=== PATIENT | female | born 1995 | race Caucasian/White ===

== ENCOUNTER 2019-10-01 09:20 | Emergency (ER) | payer OTHER ==
[2019-10-01 09:23] VITALS: BP 110/68; PULSE 128; TEMP 100.4
[2019-10-01] MEDS ORDERED: DEXAMETHASONE SOD PHOSPHATE 4 MG/ML 1 ML VIAL PO ONE (09:32)
--- NOTE | 2019-10-01 09:40 | ED ---
ENT HPI - General Chief complaint: ENT Stated complaint: sore throat Time Seen by Provider: 10/01/19 09:24 Source: patient, RN notes reviewed Mode of arrival: ambulatory Limitations: no limitations - History of Present Illness Initial comments: 24-year-old female presents emergency from chief complaints sore throat 3 days. Patient states her tonsils are swollen, exudates on them. Patient states that she's had a fever at home no abdominal pain no fatigue. Patient had no sick contacts. Patient states she has no difficulty swelling states it's is painful. Patient states that she has no cough congestion or ear pain. - Related Data Previous Rx's Medication Instructions Recorded Azithromycin [Zithromax Z-pack] 0 mg PO DIRECTED #1 pack 10/01/19 Allergies Allergy/AdvReac Type Severity Reaction Status Date / Time codeine Allergy Unknown Verified 10/01/19 09:23 Penicillins Allergy Unknown Verified 10/01/19 09:23 Review of Systems ROS Statement: Those systems with pertinent positive or pertinent negative responses have been documented in the HPI. ROS Other: All systems not noted in ROS Statement are negative. Past Medical History Past Medical History: No Reported History History of Any Multi-Drug Resistant Organisms: None Reported Past Surgical History: Breast Surgery Past Psychological History: No Psychological Hx Reported Smoking Status: Never smoker Past Alcohol Use History: None Reported Past Drug Use History: None Reported General Exam Limitations: no limitations General appearance: alert, in no apparent distress Head exam: Present: atraumatic, normocephalic, normal inspection Eye exam: Present: normal appearance, PERRL, EOMI. Absent: scleral icterus, conjunctival injection, periorbital swelling ENT exam: Present: mucous membranes moist, TM's normal bilaterally. Absent: normal exam, normal oropharynx (Erythema, exudates and edema, swallowing secretions well) Neck exam: Present: normal inspection, full ROM, lymphadenopathy. Absent: tenderness, meningismus Respiratory exam: Present: normal lung sounds bilaterally. Absent: respiratory distress, wheezes, rales, rhonchi, stridor Cardiovascular Exam: Present: normal rhythm, tachycardia, normal heart sounds. Absent: systolic murmur, diastolic murmur, rubs, gallop, clicks GI/Abdominal exam: Present: soft, normal bowel sounds. Absent: distended, tenderness, guarding, rebound, rigid Course Vital Signs 11/27/19 09:21 Temperature 100.4 F H Pulse Rate 128 H Respiratory 18 Rate Blood Pressure 110/68 O2 Sat by Pulse 96 Oximetry Medical Decision Making - Medical Decision Making Patient will be treated for clinical strep pharyngitis. Patient was given a dose of eczema some emergency from for her swelling. Patient was started on azithromycin secondary to penicillin ALLERGY. Disposition Clinical Impression: Acute tonsillitis, Acute pharyngitis Disposition: HOME SELF-CARE Condition: Stable Instructions (If sedation given, give patient instructions): Strep Throat (ED) Additional Instructions: Please return to the Emergency Department if symptoms worsen or any other concerns. Prescriptions: Azithromycin [Zithromax Z-pack] 0 mg PO DIRECTED #1 pack Is patient prescribed a controlled substance at d/c from ED?: No Referrals: None,Stated [Primary Care Provider] - 1-2 days Time of Disposition: 09:39
[2019-10-01 10:05] VITALS: RESP 20
== END 2019-10-01 10:05 | disposition home or self-care (01) ==
LOC: EC 09:20
DX: J03.90 Acute tonsillitis, unspecified (principal); Z88.0 Allergy status to penicillin; Z88.5 Allergy status to narcotic agent
CPT/HCPCS: 99283; J1100

== ENCOUNTER 2021-02-14 06:47 | Day surgery (SDC) | payer BC ==
[2021-02-10 15:05] VITALS: BMI 20.5
[~2021-02-14 06:47] MED LIST: ACETAMINOPHEN TAB 500 MG TAB PO PRN; DEXAMETHASONE SOD PHOSPHATE 4 MG/ML 1 ML VIAL IV ONE; HEPARIN SODIUM,PORCINE/PF 5,000 UNIT/0.5 ML SYRINGE SQ PRN; HYDROmorphone 0.5 MG/0.5 ML SYRINGE IVP PRN; LIDOCAINE 1% (10MG/ML) FOR IV START INTRADERMA PRN; ONDANSETRON 4 MG/2 ML VIAL IVP ONE
[2021-02-14 07:14] VITALS: TEMP 98.4
[2021-02-14] MEDS: LACTATED RINGERS 1,000 ML IV SCH ×2 (07:22→07:55)
[2021-02-14] MEDS ORDERED: SCOPOLAMINE 1.5MG/72HR PATCH TRANSDERM ONE (07:30)
[2021-02-14] MEDS: MIDAZOLAM 2 MG/2 ML VIAL IV PRN ×2 (07:35→07:40)
[2021-02-14] MEDS ORDERED: LIDOCAINE 1% INJ 10MG/ML (20 ML MDV) ONE (07:50)
[2021-02-14] MEDS ORDERED: fentaNYL (PF) 50 MCG/ML 2 ML AMP ONE (07:50)
[2021-02-14] MEDS ORDERED: PROPOFOL 10 MG/ML 20 ML VIAL IV ONE (07:50)
--- NOTE | 2021-02-14 07:54 | P.GSHP ---
History of Present Illness H&P Date: 02/14/21 Chief Complaint: Right breast mass 2 25-year-old female with history of fibroadenoma right breast. She had a 4 cm lesion excised in 2016. Recently has noticed increasing mass at 4:00 and 6:00. Mild discomfort. Past Medical History Past Medical History: No Reported History History of Any Multi-Drug Resistant Organisms: None Reported Past Surgical History: Breast Surgery Additional Past Surgical History / Comment(s): RIGHT BREAST -BENIGN LUMP REMOVED Past Anesthesia/Blood Transfusion Reactions: No Reported Reaction, Motion Sick ness Smoking Status: Never smoker - Past Family History Mother Family Medical History: Cancer Additional Family Medical History / Comment(s): BREAST CANCER Medications and Allergies Home Medications Medication Instructions Recorded Confirmed Type No Known Home Medications 02/10/21 02/14/21 History Allergies Allergy/AdvReac Type Severity Reaction Status Date / Time codeine Allergy HIVES Verified 02/14/21 07:14 Penicillins Allergy HIVES Verified 02/14/21 07:14 Surgical - Exam Vital Signs Temp Pulse Resp BP 98.4 F 53 L 18 112/61 02/14/21 07:11 02/14/21 07:11 02/14/21 07:11 02/14/21 07:11 Physical exam: General: Well-developed, well-nourished HEENT: Normocephalic, sclerae nonicteric Right breast: 2 similar mass 4:00, 1 cm mass 6:00, no adenopathy Left breast: No masses, no adenopathy Abdomen: Nontender, nondistended Extremities: No edema Neuro: Alert and oriented Assessment and Plan (1) Breast mass, right Narrative/Plan: We'll proceed with surgical excision of both lesions. Current Visit: Yes Status: Acute Code(s): N63.10 - UNSPECIFIED LUMP IN THE RIGHT BREAST, UNSPECIFIED QUADRANT SNOMED Code(s): 83418810
[2021-02-14] MEDS ORDERED: BUPIVACAINE (PF) 0.25% 30 ML VIAL SQ ONE ×2 (08:18)
[2021-02-14] MEDS ORDERED: HYDROcodone/APAP 5-325MG 1 EACH TAB PO PRN (08:44)
[2021-02-14] MEDS ORDERED: NALOXONE 0.4 MG/ML 1 ML VIAL IV PRN (08:44)
--- NOTE | 2021-02-14 08:51 | P.OP ---
Date of Procedure: 02/14/21 Procedure(s) Performed: PREOPERATIVE DIAGNOSIS: Right breast mass 2 POSTOPERATIVE DIAGNOSIS: Same PROCEDURE: Excision right breast mass 2 SURGEON: Breana EBL: 5 mL ANESTHESIA: Gen. COMPLICATIONS: None OPERATIVE PROCEDURE: A eric placed in the operating table in the supine position. The right breast was prepped and draped sterilely. A skin marker was used to delineate the edge of the areola. The areola was incised between 2:00 and 6:00. This went through a portion of her previous scar site. The sub cutaneous tissues were dissected using electrocautery. The patient's palpable mass at 4:00 was first addressed. This was able to be excised without difficulty. This measured approximately 2 cm in size. The second lesion present at 6:00 was then addressed in a similar fashion. This measured about 1.5 cm. Both were sent to pathology for close examination labeled separately. Subcutaneous tissues were closed using 3-0 Vicryl sutures. The skin was closed using a 4-0 Monocryl sutures. Skin glue and sterile dressings applied. DISPOSITION: Stable to recovery room
[2021-02-14 09:55] VITALS: BP 110/78; PULSE 53; RESP 17
== END 2021-02-14 10:01 | disposition home or self-care (01) ==
LOC: OR 06:47
PROVIDERS: ATTEND Surgery
DX: D24.1 Benign neoplasm of right breast (principal); N60.21 Fibroadenosis of right breast; R92.0 Mammographic microcalcification found on diagnostic imaging of breast; Z80.3 Family history of malignant neoplasm of breast; Z88.5 Allergy status to narcotic agent; Z88.0 Allergy status to penicillin
CPT/HCPCS: 81025; 88305; 19120; J2250; J1100; J0690; J2405; J2001; J3010; J2704; J1644

== ENCOUNTER 2021-06-21 07:22 | Emergency (ER) | payer BC ==
[2021-06-21 07:28] VITALS: BP 122/72; PULSE 61; RESP 18; TEMP 97.9
[2021-06-21] MEDS ORDERED: SODIUM CHLORIDE 0.9% 500 ML 500 ML IV STA (07:31)
--- NOTE | 2021-06-21 07:44 | ED ---
General Adult HPI - General Chief complaint: Abdominal Pain Stated complaint: Abdominal Pain/Vaginal Bleeding Time Seen by Provider: 06/21/21 07:30 Source: patient Mode of arrival: ambulatory Limitations: no limitations - History of Present Illness Initial comments: Dictation was produced using [employer] dictation software. please excuse any grammatical, word or spelling errors. Chief Complaint: 25-year-old male presents emergency Department with pelvic pain and passage of blood clots through her vagina History of Present Illness: Is a 25-year-old female she states for the last couple days she's been having some pelvic pain. Patient states that she's been having irregular bleeding for the last month. She is had 4 menstrual cycles in the last 4 weeks. This morning she was taking a shower. She pressed on her pelvic area and it was a passage of a large what she describes a baseball sized clot. Patient complains of some mild pelvic pain. Denies any fever. No nausea or vomiting. No diarrhea. No dysuria. Patient did a urine test yesterday she states was negative. She is sexually active. She is often that she does not have an STD but would like to be tested. Denies any vaginal discharge. The ROS documented in this emergency department record has been reviewed and confirmed by me. Those systems with pertinent positive or negative responses have been documented in the HPI. All other systems are other negative and/or noncontributory. PHYSICAL EXAM: General Impression: Alert and oriented x3, not in acute distress HEENT: Normocephalic atraumatic, extra-ocular movements intact, pupils equal and reactive to light bilaterally, mucous membranes moist. Cardiovascular: Heart regular rate and rhythm Chest: Able to complete full sentences, no retractions, no tachypnea Abdomen: abdomen soft, bilateral lower abdominal palpatory tenderness, no rebound tenderness, non-distended, no organomegaly Musculoskeletal: Pulses present and equal in all extremities, no peripheral edema Motor: no focal deficits noted Neurological: CN II-XII grossly intact, no focal motor or sensory deficits noted Skin: Intact with no visualized rashes Psych: Normal affect and mood Pelvic exam was performed. There was some mild right adnexal tenderness. No cervical motion tenderness. No discharge. Cervix is benign. Without any lesions. ED course: 25-year-old female presents to the emergency department for pelvic pain and dysfunctional uterine bleeding. Vital signs upon arrival are within acceptable limits. Laboratory evaluation obtained. CBC, coag panel, metabolic panel is unremarkable. Urinalysis is negative. Patient is not . Trichomoniasis is negative. Pending Chlamydia and gonorrhea PCR. Transvaginal ultrasound shows small cervical nabothian cyst. No other abnormalities. Patient reeval uated bedside at 9:15 AM found to be in stable medical condition. Patient denies any high risk sexual activity. She is agreeable to waiting on her Chlamydia and gonorrhea PCR is before being treated. Clinical presentation consistent with dysfunctional uterine bleeding. Patient will be discharged advised follow-up with primary care doctor. - Related Data Home Medications Medication Instructions Recorded Confirmed No Known Home Medications 06/21/21 06/21/21 Allergies Allergy/AdvReac Type Severity Reaction Status Date / Time codeine Allergy HIVES Verified 06/21/21 08:25 Penicillins Allergy HIVES Verified 06/21/21 08:25 Review of Systems ROS Statement: Those systems with pertinent positive or pertinent negative responses have been documented in the HPI. ROS Other: All systems not noted in ROS Statement are negative. Past Medical History Past Medical History: No Reported History History of Any Multi-Drug Resistant Organisms: None Reported Past Surgical History: Breast Surgery Additional Past Surgical History / Comment(s): RIGHT BREAST -BENIGN LUMP REMOVED Past Anesthesia/Blood Transfusion Reactions: No Reported Reaction, Motion Sickness Past Psychological History: No Psychological Hx Reported Smoking Status: Never smoker Past Alcohol Use History: None Reported Past Drug Use History: Marijuana - Past Family History Mother Family Medical History: Cancer Additional Family Medical History / Comment(s): BREAST CANCER General Exam Limitations: no limitations Course Vital Signs 06/21/21 07:26 Temperature 97.9 F Pulse Rate 61 Respiratory 18 Rate Blood Pressure 122/72 O2 Sat by Pulse 99 Oximetry Medical Decision Making - Lab Data Result diagrams: 06/21/21 07:45 06/21/21 07:45 Lab Results 06/21/21 06/21/21 06/21/21 Range/Units 07:40 07:43 07:45 WBC 7.6 (3.8-10.6) k/uL RBC 4.65 (3.80-5.40) m/uL Hgb 13.6 (11.4-16.0) gm/dL Hct 40.3 (34.0-46.0) % MCV 86.8 (80.0-100.0) fL MCH 29.2 (25.0-35.0) pg MCHC 33.6 (31.0-37.0) g/dL RDW 12.6 (11.5-15.5) % Plt Count 253 (150-450) k/uL MPV 8.0 Neutrophils % 61 % Lymphocytes % 30 % Monocytes % 5 % Eosinophils % 1 % Basophils % 1 % Neutrophils # 4.7 (1.3-7.7) k/uL Lymphocytes # 2.3 (1.0-4.8) k/uL Monocytes # 0.4 (0-1.0) k/uL Eosinophils # 0.1 (0-0.7) k/uL Basophils # 0.0 (0-0.2) k/uL PT (9.0-12.0) sec INR (<1.2) APTT (22.0-30.0) sec Sodium (137-145) mmol/L Potassium (3.5-5.1) mmol/L Chloride (98-107) mmol/L Carbon Dioxide (22-30) mmol/L Anion Gap mmol/L BUN (7-17) mg/dL Creatinine (0.52-1.04) mg/dL Est GFR (CKD-EPI)AfAm (>60 ml/min/1.73 sqM) Est GFR (CKD-EPI)NonAf (>60 ml/min/1.73 sqM) Glucose (74-99) mg/dL Calcium (8.4-10.2) mg/dL Total Bilirubin (0.2-1.3) mg/dL AST (14-36) U/L ALT (4-34) U/L Alkaline Phosphatase (38-126) U/L Total Protein (6.3-8.2) g/dL Albumin (3.5-5.0) g/dL Lipase (23-300) U/L HCG, Quant mIU/mL Urine Color Yellow Urine Appearance Clear (Clear) Urine pH 5.0 (5.0-8.0) Ur Specific Anderson 1.020 (1.001-1.035) Urine Protein Negative (Negative) Urine Glucose (UA) Negative (Negative) Urine Ketones Negative (Negative) Urine Blood Large H (Negative) Urine Nitrite Negative (Negative) Urine Bilirubin Negative (Negative) Urine Urobilinogen <2.0 (<2.0) mg/dL Ur Leukocyte Esterase Negative (Negative) Urine RBC 2 (0-5) /hpf Urine WBC 2 (0-5) /hpf Ur Squamous Epith Cells 2 (0-4) /hpf Urine Mucus Occasional H (None) /hpf Trichomonas Ag (Rapid) (Negative) Blood Type O Positive Blood Type Confirm Blood Type Recheck No Previous Record Bld Type Recheck Status CABO Indicated Antibody Screen NEGATIVE Spec Expiration Date 06/24/2021 - 234406/21/21 06/21/21 06/21/21 Range/Units 07:45 07:45 07:53 WBC (3.8-10.6) k/uL RBC (3.80-5.40) m/uL Hgb (11.4-16.0) gm/dL Hct (34.0-46.0) % MCV (80.0-100.0) fL MCH (25.0-35.0) pg MCHC (31.0-37.0) g/dL RDW (11.5-15.5) % Plt Count (150-450) k/uL MPV Neutrophils % % Lymphocytes % % Monocytes % % Eosinophils % % Basophils % % Neutrophils # (1.3-7.7) k/uL Lymphocytes # (1.0-4.8) k/uL Monocytes # (0-1.0) k/uL Eosinophils # (0-0.7) k/uL Basophils # (0-0.2) k/uL PT 10.4 (9.0-12.0) sec INR 1.0 (<1.2) APTT 23.6 (22.0-30.0) sec Sodium 141 (137-145) mmol/L Potassium 4.0 (3.5-5.1) mmol/L Chloride 108 H (98-107) mmol/L Carbon Dioxide 26 (22-30) mmol/L Anion Gap 7 mmol/L BUN 7 (7-17) mg/dL Creatinine 0.77 (0.52-1.04) mg/dL Est GFR (CKD-EPI)AfAm >90 (>60 ml/min/1.73 sqM) Est GFR (CKD-EPI)NonAf >90 (>60 ml/min/1.73 sqM) Glucose 88 (74-99) mg/dL Calcium 9.4 (8.4-10.2) mg/dL Total Bilirubin 0.3 (0.2-1.3) mg/dL AST 17 (14-36) U/L ALT 7 (4-34) U/L Alkaline Phosphatase 66 (38-126) U/L Total Protein 6.7 (6.3-8.2) g/dL Albumin 4.2 (3.5-5.0) g/dL Lipase 168 (23-300) U/L HCG, Quant <2.4 mIU/mL Urine Color Urine Appearance (Clear) Urine pH (5.0-8.0) Ur Specific Anderson (1.001-1.035) Urine Protein (Negative) Urine Glucose (UA) (Negative) Urine Ketones (Negative) Urine Blood (Negative) Urine Nitrite (Negative) Urine Bilirubin (Negative) Urine Urobilinogen (<2.0) mg/dL Ur Leukocyte Esterase (Negative) Urine RBC (0-5) /hpf Urine WBC (0-5) /hpf Ur Squamous Epith Cells (0-4) /hpf Urine Mucus (None) /hpf Trichomonas Ag (Rapid) (Negative) Blood Type Blood Type Confirm O Positive Blood Type Recheck Bld Type Recheck Status Antibody Screen Spec Expiration Date 06/21/21 Range/Units 08:11 WBC (3.8-10.6) k/uL RBC (3.80-5.40) m/uL Hgb (11.4-16.0) gm/dL Hct (34.0-46.0) % MCV (80.0-100.0) fL MCH (25.0-35.0) pg MCHC (31.0-37.0) g/dL RDW (11.5-15.5) % Plt Count (150-450) k/uL MPV Neutrophils % % Lymphocytes % % Monocytes % % Eosinophils % % Basophils % % Neutrophils # (1.3-7.7) k/uL Lymphocytes # (1.0-4.8) k/uL Monocytes # (0-1.0) k/uL Eosinophils # (0-0.7) k/uL Basophils # (0-0.2) k/uL PT (9.0-12.0) sec INR (<1.2) APTT (22.0-30.0) sec Sodium (137-145) mmol/L Potassium (3.5-5.1) mmol/L Chloride (98-107) mmol/L Carbon Dioxide (22-30) mmol/L Anion Gap mmol/L BUN (7-17) mg/dL Creatinine (0.52-1.04) mg/dL Est GFR (CKD-EPI)AfAm (>60 ml/min/1.73 sqM) Est GFR (CKD-EPI)NonAf (>60 ml/min/1.73 sqM) Glucose (74-99) mg/dL Calcium (8.4-10.2) mg/dL Total Bilirubin (0.2-1.3) mg/dL AST (14-36) U/L ALT (4-34) U/L Alkaline Phosphatase (38-126) U/L Total Protein (6.3-8.2) g/dL Albumin (3.5-5.0) g/dL Lipase (23-300) U/L HCG, Quant mIU/mL Urine Color Urine Appearance (Clear) Urine pH (5.0-8.0) Ur Specific Anderson (1.001-1.035) Urine Protein (Negative) Urine Glucose (UA) (Negative) Urine Ketones (Negative) Urine Blood (Negative) Urine Nitrite (Negative) Urine Bilirubin (Negative) Urine Urobilinogen (<2.0) mg/dL Ur Leukocyte Esterase (Negative) Urine RBC (0-5) /hpf Urine WBC (0-5) /hpf Ur Squamous Epith Cells (0-4) /hpf Urine Mucus (None) /hpf Trichomonas Ag (Rapid) Negative (Negative) Blood Type Blood Type Confirm Blood Type Recheck Bld Type Recheck Status Antibody Screen Spec Expiration Date Disposition Clinical Impression: Dysfunctional uterine bleeding Disposition: HOME SELF-CARE Condition: Good Is patient prescribed a controlled substance at d/c from ED?: No Referrals: Carri Bal PAC [Family Provider] - 1-2 days
[2021-06-21 08:03] LABS: Basophils % (A) 1 %; Eosinophils # (A) 0.1 k/uL (0-0.7); Eosinophils % (A) 1 %; HCT 40.3 % (34.0-46.0); HGB 13.6 gm/dL (11.4-16.0); Lymphocytes # (A) 2.3 k/uL (1.0-4.8); Lymphocytes % (A) 30 %; MCH 29.2 pg (25.0-35.0); MCHC 33.6 g/dL (31.0-37.0); MCV 86.8 fL (80.0-100.0); Monocytes # (A) 0.4 k/uL (0-1.0); Monocytes % (A) 5 %; Neutrophils # (A) 4.7 k/uL (1.3-7.7); Neutrophils % (A) 61 %; Platelet Count 253 k/uL (150-450); RBC 4.65 m/uL (3.80-5.40); RDW 12.6 % (11.5-15.5); WBC 7.6 k/uL (3.8-10.6)
[2021-06-21 08:03] LABS: Appearance,Urine Clear (Clear); Bilirubin,Urine Negative (Negative); Blood,Urine Large (Negative); Color,Urine Yellow; Glucose,Urine (UA) Negative (Negative); Ketones,Urine Negative (Negative); Leukocyte Esterase,Urine Negative (Negative); Mucus,Urine Occasional /hpf; Nitrite,Urine Negative (Negative); Protein,Urine Negative (Negative); RBC,Urine 2 /hpf (0-5); Squamous Epithelial Cell,Urine 2 /hpf (0-4); Urobilinogen,Urine <2.0 mg/dL (<2.0); WBC,Urine 2 /hpf (0-5)
[2021-06-21 08:07] LABS: ALT 7 U/L (4-34); AST 17 U/L (14-36); African American GFR (CKD) >90 (>60 ml/min/1.73 sqM); Albumin 4.2 g/dL (3.5-5.0); Alkaline Phosphatase 66 U/L (38-126); Anion Gap 7 mmol/L; Blood Urea Nitrogen 7 mg/dL (7-17); Calcium 9.4 mg/dL (8.4-10.2); Carbon Dioxide 26 mmol/L (22-30); Chloride 108 mmol/L (98-107); Glucose 88 mg/dL (74-99); Lipase 168 U/L (23-300); Non-African American GFR(CKD) >90 (>60 ml/min/1.73 sqM); Sodium 141 mmol/L (137-145); Total Bilirubin 0.3 mg/dL (0.2-1.3); Total Protein 6.7 g/dL (6.3-8.2)
[2021-06-21 08:09] LABS: Partial Thromboplastin Time 23.6 sec (22.0-30.0); Prothrombin Time 10.4 sec (9.0-12.0)
[2021-06-21 08:23] LABS: HCG,Quantitative Serum <2.4 mIU/mL
--- NOTE | 2021-06-21 09:01 | US ---
EXAMINATION TYPE: US transvaginal plus Doppler DATE OF EXAM: 06/21/2021 COMPARISON: NONE CLINICAL HISTORY: 25-year-old female pelvic pain. Vaginal bleeding for 2 days, LMP ended 12 days ago. Past large clot today TECHNIQUE: Transvaginal (TV). Color Doppler and spectral waveform analysis of the ovarian arteries and veins. Date of LMP: 06/06/21 FINDINGS: EXAM MEASUREMENTS: Uterus: 8.1 x 3.0 x 3.6 cm Endometrial Stripe: 0.4 cm Right Ovary: 2.7 x 2.0 x 3.7 cm for a volume of 10.4 mL. Left Ovary: 3.4 x 2.1 x 3.4 cm for a volume of 12.6 mL. 1. Uterus: Anteverted. Small 4 mm cervical nabothian cyst. 2. Endometrium: appears wnl 3. Right Ovary: multiple follicles 4. Left Ovary: multiple follicles Spectral, color and waveform doppler imaging shows good arterial and venous flow within the ovaries ; there is no evidence for ovarian torsion. 5. Bilateral Adnexa: appears wnl 6. Posterior cul-de-sac: wnl IMPRESSION: 1. Small 4 mm cervical nabothian cyst. The endometrial stripe is thin at 4 mm. 2. Follicular changes in the ovaries. No abnormal enlargement of the ovaries. No sonographic evidence for ovarian torsion.
[2021-06-23 08:34] LABS: C. trachomatis,PCR Negative (Neg,Equiv); Chlamydia trachomatis Source Cervix; N. gonorrhoeae,PCR Negative (Neg,Equiv); Neisseria Source Cervix
== END 2021-06-21 09:35 | disposition home or self-care (01) ==
LOC: EC 07:22
DX: N93.8 Other specified abnormal uterine and vaginal bleeding (principal); R10.2 Pelvic and perineal pain; Z88.0 Allergy status to penicillin; Z88.5 Allergy status to narcotic agent
CPT/HCPCS: 36415; 76830; 80053; 81001; 83690; 84702; 85025; 85610; 85730; 86850; 86900; 86901; 87491; 87591; 87808; 93975; 99284

== ENCOUNTER 2021-11-12 09:45 | Emergency (ER) | payer BC ==
[2021-11-12 09:57] VITALS: BP 104/64; PULSE 95; RESP 18; TEMP 98.7
--- NOTE | 2021-11-12 10:06 | ED ---
URI HPI - General Chief Complaint: Upper Respiratory Infection Stated Complaint: Fever,Body Aches Time Seen by Provider: 11/12/21 09:59 Source: patient Mode of arrival: ambulatory Limitations: no limitations - History of Present Illness Initial Comments: 26-year-old female presents to the emergency room for a chief complaint of COVID-19 symptoms. Patient states she doesn't positive for COVID-19 last . States her symptoms started that day as well. States she has had a cough congestion fever and body aches. Patient states she is here today for antibody infusion.Patient has no other complaints at this time including shortness of breath, chest pain, abdominal pain, nausea or vomiting, headache, or visual changes. - Related Data Home Medications Medication Instructions Recorded Confirmed No Known Home Medications 06/21/21 06/21/21 Allergies Allergy/AdvReac Type Severity Reaction Status Date / Time codeine Allergy HIVES Verified 11/12/21 09:56 Penicillins Allergy HIVES Verified 11/12/21 09:56 Review of Systems ROS Statement: Those systems with pertinent positive or pertinent negative responses have been documented in the HPI. ROS Other: All systems not noted in ROS Statement are negative. Past Medical History Past Medical History: No Reported History History of Any Multi-Drug Resistant Organisms: None Reported Past Surgical History: Breast Surgery Additional Past Surgical History / Comment(s): RIGHT BREAST -BENIGN LUMP REMOVED Past Anesthesia/Blood Transfusion Reactions: No Reported Reaction, Motion Sickness Past Psychological History: No Psychological Hx Reported Smoking Status: Never smoker Past Alcohol Use History: None Reported Past Drug Use History: Marijuana - Past Family History Mother Family Medical History: Cancer Additional Family Medical History / Comment(s): BREAST CANCER General Exam Limitations: no limitations General appearance: alert, in no apparent distress Head exam: Present: atraumatic Eye exam: Present: normal appearance, PERRL, EOMI. Absent: scleral icterus, conjunctival injection ENT exam: Present: normal exam, mucous membranes moist Neck exam: Present: normal inspection, full ROM. Absent: tenderness Respiratory exam: Present: normal lung sounds bilaterally. Absent: respiratory distress, wheezes Cardiovascular Exam: Present: regular rate, normal rhythm, normal heart sounds GI/Abdominal exam: Present: soft, normal bowel sounds. Absent: distended, tenderness Neurological exam: Present: alert Course Vital Signs 11/12/21 09:54 Temperature 98.7 F Pulse Rate 95 Respiratory 18 Rate Blood Pressure 104/64 O2 Sat by Pulse 100 Oximetry Medical Decision Making - Medical Decision Making Vitals are stable. Patient is well-appearing. Patient does not qualify for antibody infusion given she has no past medical history and her BMI is 19. At [place] priority criteria is currently being implemented. I discussed care parameters and supportive therapy. Discussed returning here for any worsening symptoms including shortness of breath. Disposition Clinical Impression: COVID-19 Disposition: HOME SELF-CARE Condition: Good Instructions (If sedation given, give patient instructions): Coronavirus Disease 2019 (COVID-19) Additional Instructions: Take Motrin and Tylenol for pain and fever. Please follow-up with your doctor in one to 2 days. Return to the emergency room for any worsening symptoms. Is patient prescribed a controlled substance at d/c from ED?: No Referrals: Angelica Bazzi DO [Primary Care Provider] - 1-2 days Time of Disposition: 10:06
== END 2021-11-12 10:30 | disposition home or self-care (01) ==
LOC: EC 09:45
DX: U07.1 COVID-19 (principal); Z88.5 Allergy status to narcotic agent; Z88.0 Allergy status to penicillin
CPT/HCPCS: 99282

== ENCOUNTER 2024-03-14 12:51 | Emergency (ER) | payer BC, OTHER ==
--- NOTE | 2024-03-14 13:17 | ED ---
ENT HPI - General Chief complaint: Dental/Oral Stated complaint: Dental issue Time Seen by Provider: 03/14/24 13:00 Source: patient, RN notes reviewed Mode of arrival: ambulatory Limitations: no limitations - History of Present Illness Initial comments: 28-year-old female presented to the ER with a chief complaint of dental pain. Patient states that she broke her left lower molar about 6 months ago. She states the past couple of days she been having increase in pain and swelling to the area. Denies any drainage. She has not been able to follow-up with her dentist as they are booked out 1 year. She denies any fevers, chills, night sweats. She has been taking [id number] Tylenol without relief. No other complaints at this time. - Related Data Previous Rx's Medication Instructions Recorded clindamycin HCL 300 mg PO QID #40 cap 03/14/24 Allergies Allergy/AdvReac Type Severity Reaction Status Date / Time codeine Allergy HIVES Verified 03/14/24 13:01 Penicillins Allergy HIVES Verified 03/14/24 13:01 Review of Systems ROS Statement: Those systems with pertinent positive or pertinent negative responses have been documented in the HPI. ROS Other: All systems not noted in ROS Statement are negative. Past Medical History Past Medical History: No Reported History History of Any Multi-Drug Resistant Organisms: None Reported Past Surgical History: Breast Surgery Additional Past Surgical History / Comment(s): RIGHT BREAST -BENIGN LUMP REMOVED Past Anesthesia/Blood Transfusion Reactions: No Reported Reaction, Motion Sickness Past Psychological History: No Psychological Hx Reported, Anxiety Smoking Status: Never smoker Past Alcohol Use History: Occasional Past Drug Use History: Marijuana - Past Family History Mother Family Medical History: Cancer Additional Family Medical History / Comment(s): BREAST CANCER General Exam Limitations: no limitations General appearance: alert, in no apparent distress ENT exam: Present: mucous membranes moist, TM's normal bilaterally, other (Impacted left lower molar with dental carry. Surrounding erythema and edema. No purulent drainage present. No drainable abscess.) Neck exam: Present: normal inspection. Absent: tenderness, meningismus, lymphadenopathy Respiratory exam: Present: normal lung sounds bilaterally. Absent: respiratory distress, wheezes, rales, rhonchi, stridor Cardiovascular Exam: Present: regular rate, normal rhythm, normal heart sounds. Absent: systolic murmur, diastolic murmur, rubs, gallop, clicks Course Vital Signs 03/14/24 03/14/24 12:58 13:19 Temperature 98.5 F 98.4 F Pulse Rate 72 69 Respiratory 18 16 Rate Blood Pressure 118/71 121/69 O2 Sat by Pulse 99 100 Oximetry Medical Decision Making - Medical Decision Making Was pt. sent in by a medical professional or institution (, [facility], [facility], urgent care, hospital, or long-term...) When possible be specific @ -No Did you speak to anyone other than the patient for history (EMS, parent, family, police, friend...)? What history was obtained from this source @ -No Did you review nursing and triage notes (agree or disagree)? Why? @ -I reviewed and agree with nursing and triage notes Were old charts reviewed (outside hosp., previous admission, EMS record, old EKG, old radiological studies, urgent care reports/EKG's, long-term records)? Report findings @ -No old charts were reviewed Differential Diagnosis (chest pain, altered mental status, abdominal pain women, abdominal pain men, vaginal bleeding, weakness, fever, dyspnea, syncope, headache, dizziness, GI bleed, back pain, seizure, CVA, palpatations, mental health, musculoskeletal)? @ -Dental caries, abscess, fractured tooth, tooth ache this list is not meant to be all-inclusive EKG interpreted by me (3pts min.). @ -None X-rays interpreted by me (1pt min.). @ -None done CT interpreted by me (1pt min.). @ -None done U/S interpreted by me (1pt. min.). @ -None done What testing was considered but not performed or refused? (CT, X-rays, U/S, labs)? Why? @ -None What meds were considered but not given or refused? Why? @ -None Did you discuss the management of the patient with other professionals (professionals i.e. [facility]inski, [facility], lab, RT, psych nurse, sr. social media & mobile manager, supervising editor trailer, teacher, training and development officer, case finisher)? Give summary @ -No Was smoking cessation discussed for >3mins.? @ -No Was critical care preformed (if so, how long)? @ -No Were there social determinants of health that impacted care today? How? (Homelessness, low income, unemployed, alcoholism, drug addiction, transportation, low edu. Level, literacy, decrease access to med. care, penitentiary, rehab)? @ -No Was there de-escalation of care discussed even if they declined (Discuss DNR or withdrawal of care, Hospice)? DNR status @ -No What co-morbidities impacted this encounter? (DM, HTN, Smoking, COPD, CAD, Cancer, CVA, ARF, Chemo, Hep., AIDS, mental health diagnosis, sleep apnea, morbid obesity)? @ -None Was patient admitted / discharged? Hospital course, mention meds given and route, prescriptions, significant lab abnormalities, going to OR and other pertinent info. @ -Discharge. 28-year-old female presented to the ER with chief complaint of dental pain. History and physical exam completed. Vitals stable. Patient no signs of acute distress and nontoxic-appearing. Left lower molar impacted with surrounding edema. No drainable abscess. Clindamycin prescribed. I advised ov [id number] Tylenol and Motrin for pain control. HurriCaine spray given to patient for pain control. Return parameters discussed. Patient discharged in stable condition with follow-up to a dentist. Referral given. Patient verbally expressed understanding and agreement with care plan. Case discussed with ED attending, Dr. Resendez. Undiagnosed new problem with uncertain prognosis? @ -No Drug Therapy requiring intensive monitoring for toxicity (Heparin, Nitro, Insulin, Cardizem)? @ -No Were any procedures done? @ -No Diagnosis/symptom? @ -Dental pain Acute, or Chronic, or Acute on Chronic? @ -Acute Uncomplicated (without systemic symptoms) or Complicated (systemic symptoms)? @ -Uncomplicated Side effects of treatment? @ -No Exacerbation, Progression, or Severe Exacerbation? @ -No Poses a threat to life or bodily function? How? (Chest pain, [place], [place], pneumonia, PE, COPD, DKA, ARF, appy, cholecystitis, CVA, Diverticulitis, Homicidal, Suicidal, threat to staff... and all critical care pts) @ -No Disposition Clinical Impression: Fracture of tooth, Toothache Disposition: HOME SELF-CARE Condition: Stable Instructions (If sedation given, give patient instructions): Toothache (ED) Additional Instructions: Complete full course of clindamycin. Follow-up with dentist to soon as possible. Return to the ER for any new or worsening concerns. Prescriptions: clindamycin HCL 300 mg PO QID #40 cap Is patient prescribed a controlled substance at d/c from ED?: No Referrals: Angelica Bazzi DO [Primary Care Provider] - 1-2 days Max Keating DDS [STAFF PHYSICIAN] - 1-2 days Thalia Pandey DDS [STAFF PHYSICIAN] - 1-2 days Time of Disposition: 13:17
[2024-03-14] MEDS: BENZOCAINE SPRAY 1 CAN MUCOUS MEM PRN (13:23)
[2024-03-14 13:40] VITALS: BP 121/69; PULSE 69; RESP 16; TEMP 98.4
== END 2024-03-14 13:36 | disposition home or self-care (01) ==
LOC: EC 12:51
DX: K03.81 Cracked tooth (principal); F12.90 Cannabis use, unspecified, uncomplicated
CPT/HCPCS: 99282